=== PATIENT | female | born 1940 | race Caucasian/White ===

== ENCOUNTER 2018-07-09 13:24 | Inpatient (IN) ==
[2018-07-09] MEDS ORDERED: Morphine Inj 4 MG/ML Vial IM ONE (14:31)
--- NOTE | 2018-07-09 15:22 | ED ---
HPI General Chief Complaint: Extremity Injury, Lower Stated Complaint: lt ankle injury x today Time Seen by Provider: 07/09/18 14:24 Source: patient Mode of arrival: ambulatory Limitations: no limitations History of Present Illness HPI Narrative: 78-year-old female here with left ankle pain. She reports while standing in her kitchen today the left leg "gave out" causing her to twist the ankle fall to the ground. She reports the ankle inverted when she fell and she physically "straightened it out". She denies altered sensation or weakness of the ankle or foot. She reports moderate to severe pain localized to the ankle. She denies head injury or loss of consciousness when she fell. She remembers entire event. She is not anticoagulated. She denies any headache, neck pain, chest pain, shortness of breath, abdominal pain, nausea vomiting, paresthesia or weakness of the extremities. She crawled to her cell phone and called her granddaughter for help. Related Data Home Medications Medication Instructions Recorded Confirmed aspirin [Aspir-81] 81 mg PO DAILY 07/09/18 07/09/18 cyanocobalamin (vitamin B-12) 1,000 mcg PO DAILY 07/09/18 07/09/18 [Vitamin B-12] meloxicam 15 mg PO DAILY 07/09/18 07/09/18 sulfasalazine 0.5 g PO DAILY 07/09/18 07/09/18 tramadol 50 mg PO QID 07/09/18 07/09/18 vitamin B complex 1 cap PO DAILY 07/09/18 07/09/18 Allergies Allergy/AdvReac Type Severity Reaction Status Date / Time No Known Allergies Allergy Unknown none Uncoded 07/09/18 13:41 Review of Systems ROS: all other systems reviewed are negative [facility] Medical History Medical History Hx of acute arthritis (Acute) Other plastic surgery for unacceptable cosmetic appearance (Acute) Surgical History Surgical History Hx of breast augmentation (Acute) Hx of rotator cuff surgery (Acute) Family History Family History Other Adopted Social History Social History Substance History: No History of Abuse Second Hand Smoke Exposure: No Smoking Status: Never smoker How Often Do You Have a Drink Containing Alcohol: Never Recent Travel in [facility] within the Last 8 Weeks: No Recent Out of Country Travel within the Last 8 Weeks: No Immunization History Tetanus Immunization: <5 Years Hx Influenza Vaccine This Season: Yes Exam Narrative Exam Narrative: GENERAL: Alert and well-appearing 78-year-old female. SKIN: Focused skin assessment warm/dry. HEAD: Atraumatic. Normocephalic. EYES: Pupils equal and round. EOMI. No injection or drainage. ENT: No nasal bleeding or discharge. Mucous membranes pink and moist. NECK: Trachea midline. No midline spine tenderness. Freely moves the neck. CARDIOVASCULAR: Regular rate and rhythm. No murmur appreciated. RESPIRATORY: No accessory muscle use. Clear to auscultation. Breath sounds equal bilaterally. GASTROINTESTINAL: Abdomen soft, non-tender, nondistended. No rebound or guarding. MUSCULOSKELETAL: No obvious deformities. No clubbing. No cyanosis. Pelvis is stable. No hip tenderness. Normal full range of motion in the upper and right lower extremities. LLE: Notable swelling and ecchymosis to the medial and lateral malleolus. Can freely wiggle the toes. Palpable DP pulse equal to opposing limb. Extremity is warm. Distal sensation intact. Cap refill intact. BACK: No CVA tenderness. No rash. No point tenderness on palpation of the spine. NEUROLOGICAL: Awake and alert. No obvious cranial nerve deficits. Motor grossly within normal limits. Normal speech. PSYCHIATRIC: Appropriate mood and affect; insight and judgment normal. Course Initial Documented Vital Signs Temperature 98.7 F 07/09/18 13:34 Pulse Rate 93 H 07/09/18 13:34 Respiratory Rate 16 07/09/18 13:34 Blood Pressure 156/73 H 07/09/18 13:34 Pulse Oximetry 98 07/09/18 13:34 Last Documented Vital Signs Temperature 98.7 F 07/09/18 13:34 Pulse Rate 80 07/09/18 18:28 Respiratory Rate 18 07/09/18 18:28 Blood Pressure 168/77 H 07/09/18 18:28 Pulse Oximetry 95 07/09/18 18:28 Medical Decision Making [facility] Narrative Medical decision making narrative: 78-year-old female here with ankle pain status post fall from a standing position today. No head injury/loss of consciousness. Normal neurologic exam. By report she reduced the ankle dislocation herself prior to arrival. The extremity is neurovascularly intact, strong pedal pulse. Well-padded James splint applied. X-ray reveals fracture dislocation of the left ankle. Spoke with LYRIC Crane working with on-call orthopedist Dr. James. Discussed patient's case. They would like patient admitted to medicine, transferred to [facility] for surgery tomorrow morning. Patient is to be kept n.p.o. after midnight. Well-padded James splint. spoke with Dr Mondragon [facility] who accepts patient to their service. Medical Screen Exam Complete: Yes Emergency Medical Condition: Yes Differential Diagnosis Differential Diagnosis: Fracture, sprain/strain, contusion Lab Data Result diagrams: 07/09/18 16:30 07/09/18 16:30 Lab Results 07/09/18 07/09/18 07/09/18 Range/Units 16:30 16:30 17:05 CBC w Diff Auto diff final WBC 15.9 H (4.0-11.0) th/mm3 RBC 4.05 (4.00-5.30) mil/mm3 Hgb 12.4 (11.6-15.3) gm/dL Hct 36.5 (35.0-46.0) % MCV 90.2 (80.0-100.0) fL MCH 30.7 (27.0-34.0) pg MCHC 34.1 (32.0-36.0) % RDW 13.3 (11.6-17.2) % Plt Count 247 (150-450) th/mm3 MPV 7.7 (7.0-11.0) fL Neut % (Auto) 86.7 H (16.0-70.0) % Lymph % (Auto) 9.4 (9.0-44.0) % Beltrami % (Auto) 3.4 (0.0-8.0) % Eos % (Auto) 0.2 (0.0-4.0) % Baso % (Auto) 0.3 (0.0-2.0) % Neut # (Auto) 13.9 H (1.8-7.7) th/mm3 Lymph # (Auto) 1.5 (1.0-4.8) th/mm3 Beltrami # (Auto) 0.5 (0.0-0.9) th/mm3 Eos # (Auto) 0.0 (0.0-0.4) th/mm3 Baso # (Auto) 0.0 (0.0-0.2) th/mm3 WBC Differential . Differential Comment . PT 10.5 (9.8-11.6) sec INR 1.0 Ratio APTT 24.9 (24.3-30.1) sec Sodium 140 (136-145) meq/L Potassium 4.5 (3.5-5.1) meq/L Chloride 105 (98-107) meq/L Carbon Dioxide 24.6 (21.0-32.0) meq/L Anion Gap 10 (5-15) meq/L BUN 25 H (7-18) mg/dL Creatinine 1.30 H (0.50-1.00) mg/dL Estimated GFR 40 L (>89) mL/min Random Glucose 103 (74-106) mg/dL Calcium 8.4 L (8.5-10.1) mg/dL Imaging Data Radiologist's impression: Chest X-Ray 07/09/18 00:00 CONCLUSION: No acute cardiopulmonary disease identified. Ankle X-Ray 07/09/18 14:29 CONCLUSION: Acute fracture dislocation involving the ankle as detailed above. Foot X-Ray 07/09/18 14:29 CONCLUSION: See the ankle reported separately. The acute abnormality involving the foot.. Discharge Plan Discharge Disposition Patient Disposition: 30 Still Patient Discharge Details Diagnosis: Closed fracture dislocation of ankle Physicians Team ED Provider: Lorenzo Soto ED Midlevel Provider: Kathryn Abel Primary Care Provider: Colin Espinoza Attending Provider: Froylan Mondragon Other Providers: Mendoza James Status ED Status: Admitted Patient
--- NOTE | 2018-07-09 15:25 | XR ---
EXAM DATE: 07/09/2018 3:21 PM EDT AGE/SEX: 78 years / Female INDICATIONS: Trauma due to fall. CLINICAL DATA: This is the patient's initial encounter. Patient reports that signs and symptoms have been present for 1 day and indicates a pain score of 10/10. MEDICAL/SURGICAL HISTORY: None. None. COMPARISON: HPO, FOOT COMPLETE LEFT 3V, 07/09/2018. . FINDINGS: 6 images left ankle reveal an acute obliquely oriented fracture involving the distal fibular metaphys is. There is 20 degrees angulation with apex laterally. An acute fracture seen involving the medial m alleolus of the distal tibia. There is medial displacement of the tibia relative to the talar dome. T here is a small calcification projecting anterior to the tibiotalar joint on the lateral view without definitive correlate on the frontal view. This could relate to a small avulsion fracture off the ant erior aspects of the tibia. A joint effusion is noted. Spurring of the calcaneus. Degenerative change s involving the midfoot. CONCLUSION: Acute fracture dislocation involving the ankle as detailed above. Electronically signed by: Trent Ward MD 07/09/2018 3:23 PM EDT
--- NOTE | 2018-07-09 15:59 | XR ---
EXAM DATE: 07/09/2018 3:22 PM EDT AGE/SEX: 78 years / Female INDICATIONS: Trauma due to fall. CLINICAL DATA: This is the patient's initial encounter. Patient reports that signs and symptoms have been present for 1 day and indicates a pain score of 10/10. MEDICAL/SURGICAL HISTORY: None. None. COMPARISON: HPO, ANKLE COMPLETE LEFT MIN 3V, 07/09/2018. . FINDINGS: See the ankle report separately. The foot is intact. No fracture or dislocation. Soft tissues are unremarkable. Midfoot degenerative c hanges noted. CONCLUSION: See the ankle reported separately. The acute abnormality involving the foot.. Electronically signed by: Trent Ward MD 07/09/2018 3:58 PM EDT
[2018-07-09] MEDS ORDERED: Morphine Inj 4 MG/ML Vial IV.PUSH ONE (16:23)
[2018-07-09 16:51] LABS: Baso % (Auto) 0.3 % (0.0-2.0); Eos % (Auto) 0.2 % (0.0-4.0); Hematocrit 36.5 % (35.0-46.0); Hemoglobin 12.4 gm/dL (11.6-15.3); Lymph # (Auto) 1.5 th/mm3 (1.0-4.8); Lymph % (Auto) 9.4 % (9.0-44.0); Mean Corpuscular HGB Conc 34.1 % (32.0-36.0); Mean Corpuscular Hemoglobin 30.7 pg (27.0-34.0); Mean Corpuscular Volume 90.2 fL (80.0-100.0); Mean Platelet Volume 7.7 fL (7.0-11.0); Mono # (Auto) 0.5 th/mm3 (0.0-0.9); Mono % (Auto) 3.4 % (0.0-8.0); Neut # (Auto) 13.9 th/mm3 (1.8-7.7); Neut % (Auto) 86.7 % (16.0-70.0); Platelet Count 247 th/mm3 (150-450); Red Blood Count 4.05 mil/mm3 (4.00-5.30); Red Cell Distribution Width 13.3 % (11.6-17.2); White Blood Count 15.9 th/mm3 (4.0-11.0)
[2018-07-09 16:59] LABS: Potassium 4.5 meq/L (3.5-5.1)
[2018-07-09 17:01] LABS: Calcium 8.4 mg/dL (8.5-10.1); Carbon Dioxide 24.6 meq/L (21.0-32.0)
[2018-07-09] MEDS ORDERED: Acetaminophen 325 MG Tablet PO PRN (17:12)
[2018-07-09] MEDS ORDERED: Morphine Inj 4 MG/ML Vial IV.PUSH PRN (17:30)
--- NOTE | 2018-07-09 17:31 | P.PNIM ---
Physical Exam Vital signs: Vital Signs 07/09/18 13:34 07/09/18 16:45 07/09/18 17:22 Temperature 98.7 F Pulse Rate 93 H 80 Respiratory Rate 16 18 18 Blood Pressure 156/73 H 146/79 H Pulse Oximetry 98 97 Intake & Output 07/08/18 07/09/18 07/09/18 18:59 06:59 18:59 Weight 82 kg Results - Labs CBC & Chem 7: 07/09/18 16:30 07/09/18 16:30 Laboratory Results - last 24 hr 07/09/18 07/09/18 16:30 16:30 CBC w Diff Auto diff final WBC 15.9 H RBC 4.05 Hgb 12.4 Hct 36.5 MCV 90.2 MCH 30.7 MCHC 34.1 RDW 13.3 Plt Count 247 MPV 7.7 Neut % (Auto) 86.7 H Lymph % (Auto) 9.4 Rogers % (Auto) 3.4 Eos % (Auto) 0.2 Baso % (Auto) 0.3 Neut # (Auto) 13.9 H Lymph # (Auto) 1.5 Rogers # (Auto) 0.5 Eos # (Auto) 0.0 Baso # (Auto) 0.0 WBC Differential . Differential Comment . Sodium 140 Potassium 4.5 Chloride 105 Carbon Dioxide 24.6 Anion Gap 10 BUN 25 H Creatinine 1.30 H Estimated GFR 40 L Random Glucose 103 Calcium 8.4 L - Imaging Impressions Ankle X-Ray 07/09/18 14:29 CONCLUSION: Acute fracture dislocation involving the ankle as detailed above. Foot X-Ray 07/09/18 14:29 CONCLUSION: See the ankle reported separately. The acute abnormality involving the foot..
--- NOTE | 2018-07-09 17:34 | P.HPIM ---
History of Present Illness Service: [facility] Primary Care Physician: Colin Espinoza MD Chief Complaint: distal leg fracture History of Present Illness: Mrs. Quiroz is a 78 yo F with H osteoarthritis, rheumatoid arthritis, and distant prior TIA who presented to [facility] PO after fall injury this morning resulting in L ankle/leg injury. Patient states that she was preparing meals for her dogs this morning when she felt that her left leg was "going out." She could not keep her balance so she fell which resulted in her ankle being displaced inward towards her right leg. Patient states that she fell slowly and did not hit her head or have other injury. She denies any loss of consciousness, dizziness, or other symptoms preceding fall. Patient reports prior weakness/ "wobbl'ing of her leg due to history of arthritis and that she has seen a physician previously for this; she did not have acute numbness/tingling/weakness or other changes to cause suspicion for cardiac or vascular accident. After injury, patient could not ambulate so crawled to phone to contact granddaughter. Patient was then given splint by fire department who arrived to house, and was subsequently transported to ED. Patient reports having recent weakness so was planning to have a cardiac work- up per her PCP. She has not had chest pain or palpitations. She takes Tramadol and Sulfasalazine for arthritis; she denies other medical problems. Interval: patient evaluated in ED; ankle imaging demonstrating complicated distal fibula/ tibia fracture. Patient given Morphine for pain. Per discussion between ED and Dr. James's team, it was agreed for patient to be transferred to [facility] with plan for ORIF tomorrow; hospitalist called for admission. - Diagnosis (1) Closed fracture dislocation of ankle (2) Osteoarthritis (3) Rheumatoid arthritis Inpatient Certification: I certify that the inpatient services were ordered in accordance with Medicare regulations governing the order. This includes certification that hospital inpatient services are reasonable and necessary and in the case of services not specified as inpatient-only under 42 CFR 419.22(n), that they are appropriately provided as inpatient services in accordance to with the 2-midnight benchmark under 43 CFR 412.3(e) Estimated Total Length of Stay (Days): 3 Plans for Post Hospital Care: Home Review of Systems Constitutional: Reports weakness, Denies chills, Denies fever(s) Eyes: Denies blurry vision, Denies change in vision Ears, Nose, Mouth, and Throat: Denies sinus pain, Denies sinus pressure Cardiovascular: Denies chest pain, Denies shortness of breath Respiratory: Denies cough, Denies shortness of breath Gastrointestinal: Denies abdominal pain, Denies vomiting Genitourinary: Denies urinary incontinence, Denies urinary urgency Musculoskeletal: Reports back pain, Reports joint pain Neurologic: Denies tingling, Denies tingling/numbness/burning sensations Psychiatric: Denies confusion, Denies depression Hematologic/Lymphatic: Denies easy bleeding, Denies easy bruising PMFSH - History History Provided By: Patient - Medical History Medical History: Medical History (Last Reviewed 07/09/18 @ 15:18 by Kathryn Abel) Hx of acute arthritis Other plastic surgery for unacceptable cosmetic appearance - Surgical History Surgical History: Surgical History (Last Reviewed 07/09/18 @ 15:18 by Kathryn Abel) Hx of breast augmentation Hx of rotator cuff surgery - Family History Family History: Family History (Last Updated 07/09/18 @ 17:59 by Froylan Mondragon MD) Other Adopted - Tobacco History Second Hand Smoke Exposure: No Smoking Status: Never smoker - Alcohol History How Often Do You Have a Drink Containing Alcohol: Never - Substance Use History Substance History: No History of Abuse - Travel History Recent Travel in the [place] Within the Last 8 Weeks: No Recent Travel Out of the Country Within the Last 8 Weeks: No - Immunization History Tetanus Immunization: <5 Years Hx Influenza Vaccine This Season: Yes Medications and Allergies Active Medications: Active Medications Acetaminophen (Tylenol) 650 mg PO Q4H PRN PRN Reason: Temp > 100.4 Hydrocodone Bitart/Acetaminophen ([place] 5/325) 1 tab PO Q6H PRN PRN Reason: Pain Scale 1 To 6 Aspirin (Ecotrin) 81 mg PO DAILY [facility] Cyanocobalamin (Vitamin B12) 1,000 mcg PO DAILY [facility] Enalaprilat (Vasotec Inj) 1.25 mg IV.PUSH Q8H PRN PRN Reason: SBP>180, DBP>95 Sodium Chloride (Ns Inj) 1,000 mls @ 100 mls/hr IV.CONT .Q10H [facility] Meloxicam (Mobic) 15 mg PO DAILY [facility] Morphine Sulfate (Morphine Inj) 4 mg IV.PUSH Q4H PRN PRN Reason: PAIN SCALE 7 TO 10 SEVERE Morphine Sulfate (Morphine Inj) 2 mg IV.PUSH Q4H PRN PRN Reason: BREAKTHROUGH PAIN Non-Formulary Medication (Vitamin B Complex [Vitamin B Complex]) 1 cap PO DAILY [facility] Ondansetron HCl (Zofran Inj) 4 mg IV.PUSH Q6H PRN PRN Reason: NAUSEA OR VOMITING Senna/Docusate Sodium (Cyndy-Colace) 1 tab PO BID [facility] Sodium Chloride (Ns Flush) 2 ml IV.FLUSH PRN PRN PRN Reason: FLUSH AFTER USING IV ACCESS Sulfasalazine (Azulfidine) 500 mg PO DAILY [facility] Tramadol HCl (Ultram) 50 mg PO QID PRN PRN Reason: Chronic Pain Allergies Allergy/AdvReac Type Severity Reaction Status Date / Time No Known Allergies Allergy Unknown none Uncoded 07/09/18 13:41 Home Medications Medication Instructions Recorded Confirmed Type aspirin [Aspir-81] 81 mg PO DAILY 07/09/18 07/09/18 History cyanocobalamin (vitamin B-12) 1,000 mcg PO DAILY 07/09/18 07/09/18 History [Vitamin B-12] meloxicam 15 mg PO DAILY 07/09/18 07/09/18 History sulfasalazine 0.5 g PO DAILY 07/09/18 07/09/18 History tramadol 50 mg PO QID 07/09/18 07/09/18 History vitamin B complex 1 cap PO DAILY 07/09/18 07/09/18 History Exam Vital signs: Vital Signs 07/09/18 13:34 07/09/18 16:45 07/09/18 17:22 Temperature 98.7 F Pulse Rate 93 H 80 Respiratory Rate 16 18 18 Blood Pressure 156/73 H 146/79 H Pulse Oximetry 98 97 Intake & Output 07/08/18 07/09/18 07/09/18 18:59 06:59 18:59 Weight 82 kg Narrative: General: No acute distress Eyes: EOM grossly I HENT: Normal mucus membranes Skin: No visible lesions Neck: No appreciated thyromegaly or lymphadenopathy CV: Regular rate and rhythm; normal perfusion Resp: CTAB; normal rate Abdomen/Back: Normal BS. Ext: Grossly normal ROM and motor function. LLE in splint. Neuro: Awake/alert. Grossly normal CN. Grossly normal peripheral motor/sensory function. Patient with RLE intact sensation distally in toes; full motor function with manipulation of toes Results - Labs CBC & Chem 7: 07/09/18 16:30 07/09/18 16:30 Labs: Short CBC 07/09/18 Range/Units 16:30 WBC 15.9 H (4.0-11.0) th/mm3 Hgb 12.4 (11.6-15.3) gm/dL Hct 36.5 (35.0-46.0) % Plt Count 247 (150-450) th/mm3 BMP 07/09/18 16:30 Sodium 140 Potassium 4.5 Chloride 105 Carbon Dioxide 24.6 BUN 25 H Creatinine 1.30 H Calcium 8.4 L - Imaging Impressions Ankle X-Ray 07/09/18 14:29 CONCLUSION: Acute fracture dislocation involving the ankle as detailed above. Foot X-Ray 07/09/18 14:29 CONCLUSION: See the ankle reported separately. The acute abnormality involving the foot.. Caprini VTE Risk Assessment Caprini VTE Risk Assessment: Moderate/High Risk (score >= 2) Caprini Risk Assessment Model: Point Value = 1 Point Value = 2 Point Value = 3 Point Value = 5 Age 41-60 Minor surgery BMI > 25 kg/m2 Swollen legs Varicose veins or History of unexplained or recurrent spontaneous Oral contraceptives or hormone replacement Sepsis (< 1 month) Serious lung disease, including pneumonia (< 1 month) Abnormal pulmonary function Acute myocardial infarction Congestive heart failure (< 1 month) History of inflammatory bowel disease Medical patient at bed rest Age 61-74 Arthroscopic surgery Major open surgery (> 45 min) Laparoscopic surgery (> 45 min) Malignancy Confined to bed (> 72 hours) Immobilizing plaster cast Central venous access Age >= 75 History of VTE Family history of VTE Factor V Leiden Prothrombin [id number] Lupus anticoagulant Anticardiolipin antibodies Elevated serum homocysteine Heparin-induced thrombocytopenia Other congenital or acquired thrombophilia Stroke (< 1 month) Elective arthroplasty Hip, pelvis, or leg fracture Acute spinal cord injury (< 1 month) Prophylaxis Regimen: Total Risk Factor Score Risk Level Prophylaxis Regimen 0-1 Low Early ambulation 2 Moderate Order ONE of the following: *Sequential Compression Device (SCD) *Heparin 5000 units SQ BID 3-4 Higher Order ONE of the following medications: *Heparin 5000 units SQ TID *Enoxaparin/Lovenox 40 mg SQ daily (WT < 150 kg, CrCl > 30 mL/min) *Enoxaparin/Lovenox 30 mg SQ daily (WT < 150 kg, CrCl > 10-29 mL/min) *Enoxaparin/Lovenox 30 mg SQ BID (WT < 150 kg, CrCl > 30 mL/min) AND/OR *Sequential Compression Device (SCD) 5 or more Highest Order ONE of the following medications: *Heparin 5000 units SQ TID (Preferred with Epidurals) *Enoxaparin/Lovenox 40 mg SQ daily (WT < 150 kg, CrCl > 30 mL/min) *Enoxaparin/Lovenox 30 mg SQ daily (WT < 150 kg, CrCl > 10-29 mL/min) *Enoxaparin/Lovenox 30 mg SQ BID (WT < 150 kg, CrCl > 30 mL/min) AND *Sequential Compression Device (SCD) Assessment and Plan - Assessment (1) Closed fracture dislocation of ankle Code(s): S82.899A - Other fracture of unspecified lower leg, initial encounter for closed fracture Status: Acute (2) Osteoarthritis Code(s): M19.90 - Unspecified osteoarthritis, unspecified site Status: Acute (3) Rheumatoid arthritis Code(s): M06.9 - Rheumatoid arthritis, unspecified Status: Acute - Plan Mrs. Quiroz is a 78 yo F with: Distal leg/ankle fracture Impression: secondary to fall injury earlier today; reportedly closed Ankle XR- acute fracture involving ankle: distal fibular metaphysis; 20 degrees angulation with lateral apex. Acute medial malleolar fracture of distal tibia. Medial displacement of tibia. Small calcification progjecting anterior to tibiotalar joint on lateral view without definite correlate on frontal view; possible small avulsion of anterior tibia. Joint effusion noted. Degenerative changes of midfoot noted -Orthopedic surgery consulted -Will make NPO after midnight -Pain control -Will give Morphine 4mg IV for pain 7-10; Morphine 2mg for breakthrough pain -Will check Vit D -CM and PT consults Weakness Impression: Per patient, she has had recent weakness without other associated symptoms. She states that her PCP referred her to Cardiology but denies knowledge of arrhythmia -Will check pre-op EKG Leukocytosis Impression: No symptoms suggestive of source of infection; likely reactive / from demargination from injury -Will check pre-op CXR and UA Rheumatoid arthritis -Continue home Tramadol, Sulfasalazine, Meloxicam DVT PPX -SCD's bilaterally pre-op Code Status: Full code (1) Closed fracture dislocation of ankle Qualifiers: Encounter type: initial encounter Laterality: left Qualified Code(s): S82.892A - Other fracture of left lower leg, initial encounter for closed fracture
[2018-07-09 17:42] LABS: Activated Partial Thrombo Time 24.9 sec (24.3-30.1); Prothrombin Time 10.5 sec (9.8-11.6)
--- NOTE | 2018-07-09 18:04 | XR ---
EXAM DATE: 07/09/2018 5:57 PM EDT AGE/SEX: 78 years / Female INDICATIONS: Pre-op. Please evaluate for pneumonia, pneumothorax, or any other communicable diseases . CLINICAL DATA: This is the patient's initial encounter. Patient reports that signs and symptoms have been present for 1 day and indicates a pain score of 0/10. MEDICAL/SURGICAL HISTORY: None. None. COMPARISON: POI, XR CHEST PA AND LAT, 07/06/2018. . FINDINGS: Single AP view of the chest. The lungs are clear. Cardiomediastinal silhouette within nor mal limits. No evidence of pleural effusion or pneumothorax. CONCLUSION: No acute cardiopulmonary disease identified. Electronically signed by: Anirudh Salguero MD 07/09/2018 6:03 PM EDT
[2018-07-09] MEDS: sulfaSALAzine 500 MG Tablet PO SCH (18:55)
--- NOTE | 2018-07-09 21:55 | ECG ---
Date Performed: 07/09/2018 Time Performed: 17:36:50 PTAGE: 78 years EKG: Sinus rhythm NONSPECIFIC ST & T-WAVE ABNORMALITY BORDERLINE ECG PREVIOUS TRACING : 08/02/2013 00.47 DOCTOR: Win Velazquez Interpretating Date/Time 07/09/2018 21:53:24
[2018-07-10] MEDS: Sod Chloride 0.9% Inj 1,000 ML IV.CONT SCH ×4 (00:21→18:55)
[2018-07-10] MEDS: Morphine Inj 4 MG/ML Vial IV.PUSH PRN (00:21)
[2018-07-10] MEDS ORDERED: Chlorhexidine Gluconate 2% 1 Pack (2 Cloths) TOPICAL ONE (01:09)
[2018-07-10] MEDS ORDERED: Sodium Chlor 0.9% Inj 500 ML IV.SIG SCH (02:00)
[2018-07-10 05:30] LABS: Baso # (Auto) 0.1 th/mm3 (0.0-0.2); Baso % (Auto) 0.6 % (0.0-2.0); Eos # (Auto) 0.1 th/mm3 (0.0-0.4); Eos % (Auto) 0.6 % (0.0-4.0); Hemoglobin 10.9 gm/dL (11.6-15.3); Lymph # (Auto) 2.2 th/mm3 (1.0-4.8); Lymph % (Auto) 22.2 % (9.0-44.0); Mean Corpuscular HGB Conc 32.9 % (32.0-36.0); Mean Corpuscular Hemoglobin 30.1 pg (27.0-34.0); Mean Corpuscular Volume 91.3 fL (80.0-100.0); Mean Platelet Volume 7.8 fL (7.0-11.0); Mono # (Auto) 0.7 th/mm3 (0.0-0.9); Neut # (Auto) 6.9 th/mm3 (1.8-7.7); Neut % (Auto) 69.6 % (16.0-70.0); Platelet Count 228 th/mm3 (150-450); Red Blood Count 3.61 mil/mm3 (4.00-5.30); Red Cell Distribution Width 14.3 % (11.6-17.2); White Blood Count 9.9 th/mm3 (4.0-11.0)
[2018-07-10 05:53] LABS: Anion Gap 8 meq/L (5-15); Aspartate Aminotransferase 21 U/L (15-37); Blood Urea Nitrogen 26 mg/dL (7-18); Calcium 8.1 mg/dL (8.5-10.1); Carbon Dioxide 26.1 meq/L (21.0-32.0); Chloride 107 meq/L (98-107); Glomerular Filtration Rate 38 mL/min (>89); Glucose,Random 134 mg/dL (74-106); Potassium 3.9 meq/L (3.5-5.1); Sodium 141 meq/L (136-145)
[2018-07-10 05:55] LABS: Alanine Aminotransferase 22 U/L (10-53)
[2018-07-10 06:04] LABS: Alkaline Phosphatase 80 U/L (45-117); Total Protein 6.8 g/dL (6.4-8.2)
--- NOTE | 2018-07-10 06:59 | P.PNOP ---
Subjective Interval history: s/p fall at home left ankle pain. no other complaints. Physical Exam Vital signs: Vital Signs 07/09/18 13:34 07/09/18 16:45 07/09/18 17:22 Temperature 98.7 F Pulse Rate 93 H 80 Respiratory Rate 16 18 18 Blood Pressure 156/73 H 146/79 H Pulse Oximetry 98 97 07/09/18 18:28 07/09/18 18:59 07/09/18 19:43 Temperature Pulse Rate 80 72 74 Respiratory Rate 18 20 18 Blood Pressure 168/77 H 157/63 H 157/62 H Pulse Oximetry 95 94 L 94 L 07/09/18 20:27 07/09/18 20:35 07/09/18 21:28 Temperature 97.8 F Pulse Rate 70 72 Respiratory Rate 18 18 Blood Pressure 166/72 H 147/62 H Pulse Oximetry 90 L 98 98 07/09/18 22:00 07/10/18 00:00 07/10/18 04:00 Temperature 98.4 F 97.3 F L 98.1 F Pulse Rate 83 96 H 77 Respiratory Rate 20 19 16 Blood Pressure 162/60 H 184/68 H 144/58 H Pulse Oximetry 95 97 98 Intake & Output 07/09/18 07/09/18 07/10/18 06:59 18:59 06:59 Intake Total 480 / 480 Output Total 100 / 100 Balance 480 / 480 -100 / -100 Weight 82 kg 83.2 kg Intake: Oral 480 / 480 Output: Emesis 100 / 100 Other: Date of Last Bowel Movement 07/08/18 # Emeses 2 # Oral Regurgitations 2 Weight On Admission 82 kg Narrative: LLE: +short leg splint. intact. NVI Results - Labs CBC & Chem 7: 07/10/18 04:50 07/10/18 04:50 Laboratory Results - last 24 hr 07/09/18 07/09/18 07/09/18 16:30 16:30 17:05 CBC w Diff Auto diff final WBC 15.9 H RBC 4.05 Hgb 12.4 Hct 36.5 MCV 90.2 MCH 30.7 MCHC 34.1 RDW 13.3 Plt Count 247 MPV 7.7 Neut % (Auto) 86.7 H Lymph % (Auto) 9.4 Porter % (Auto) 3.4 Eos % (Auto) 0.2 Baso % (Auto) 0.3 Neut # (Auto) 13.9 H Lymph # (Auto) 1.5 Porter # (Auto) 0.5 Eos # (Auto) 0.0 Baso # (Auto) 0.0 WBC Differential . Differential Comment . PT 10.5 INR 1.0 APTT 24.9 Sodium 140 Potassium 4.5 Chloride 105 Carbon Dioxide 24.6 Anion Gap 10 BUN 25 H Creatinine 1.30 H Estimated GFR 40 L Random Glucose 103 Calcium 8.4 L Total Bilirubin AST ALT Alkaline Phosphatase Total Protein Albumin TSH Blood Type Blood Type Recheck Antibody Screen 07/10/18 07/10/18 07/10/18 04:50 04:50 04:50 CBC w Diff WBC 9.9 RBC 3.61 L Hgb 10.9 L Hct 33.0 L MCV 91.3 MCH 30.1 MCHC 32.9 RDW 14.3 Plt Count 228 MPV 7.8 Neut % (Auto) 69.6 Lymph % (Auto) 22.2 Porter % (Auto) 7.0 Eos % (Auto) 0.6 Baso % (Auto) 0.6 Neut # (Auto) 6.9 Lymph # (Auto) 2.2 Porter # (Auto) 0.7 Eos # (Auto) 0.1 Baso # (Auto) 0.1 WBC Differential . Differential Comment Auto diff final PT INR APTT Sodium 141 Potassium 3.9 Chloride 107 Carbon Dioxide 26.1 Anion Gap 8 BUN 26 H Creatinine 1.33 H Estimated GFR 38 L Random Glucose 134 H Calcium 8.1 L Total Bilirubin 0.3 AST 21 ALT 22 Alkaline Phosphatase 80 Total Protein 6.8 Albumin 3.0 L TSH 3.840 H Blood Type A Positive Blood Type Recheck Required Antibody Screen Negative - Imaging Impressions Chest X-Ray 07/09/18 00:00 CONCLUSION: No acute cardiopulmonary disease identified. Ankle X-Ray 07/09/18 14:29 CONCLUSION: Acute fracture dislocation involving the ankle as detailed above. Foot X-Ray 07/09/18 14:29 CONCLUSION: See the ankle reported separately. The acute abnormality involving the foot.. Assessment and Plan - Assessment and Plan 1) Left Bimalleolar Ankle Fx -npo -consents -surgery today [facility] Prescription Drug Monitoring Database has been queried and verified prior to prescribing the controlled substance. Acute pain exception. This patient has normal, predicted, physiological, and time limited response to an adverse mechanical stimulus associated with surgery, trauma, or acute illness as described in my notes. There is a lack of alternative treatment options other than to include the prescribed narcotic treatment for this condition.
[2018-07-10] MEDS ORDERED: Lidocaine PF 1% Inj 5 ML Syringe INFILTRATN ONE (07:30)
[2018-07-10] MEDS ORDERED: Post-op Orders (for Pharmacy) OTHER STA (08:17)
--- NOTE | 2018-07-10 08:21 | P.OP ---
- Preoperative Diagnosis (1) Closed fracture dislocation of ankle Date of procedure: 07/10/18 Procedure: Open reduction internal fixation left ankle bimalleolar fracture, stress exam syndesmosis under fluoroscopy Anesthesia: MITCHEL Surgeon: Mendoza Chu MD Stop Attacher: MANUELA Crane PA-C The surgical procedure was assisted by my physician information technology assistant. My P.A. presence was necessary throughout this case for the manipulation and positioning of the surgical extremity. My P.A. was assisting me throughout the duration of this procedure. The skill set of a physician information technology assistant was medically necessary to complete this procedure. During the surgical case the surgical services tech was working at the back table and the physician information technology assistant was directly assisting me. Operation and Findings: Implants used : ITS Plan of activity: Nonweightbearing Details of procedure: Patient was seen and evaluated preoperatively and found to have a displaced left ankle fracture. Informed consent was obtained after a detailed discussion of risk and benefits of surgery. The operative site was marked. Patient was brought to the OR, placed on the OR table, and given IV sedation and general endotracheal anesthesia. IV antibiotics were given preoperatively. A timeout procedure was performed. The operative leg was prepped with alcohol followed by Hibiclens and draped in the usual sterile fashion. Attention was turned towards the distal fibula. A four-inch incision was made over the distal fibula. The subcutaneous tissue was dissected with Bovie. The fracture site was visualized. The fracture site was cleaned with curets. The fracture was now reduced. The fracture keyed into anatomic alignment. K-wires were used to h old provisional fixation. A lag screw was placed to compress fracture. A plate was selected and contoured to fit the distal fibula. The plate was provisionally held to bone with K-wires. 3.5 cortical screws were used to compress the plate to bone. Multiple screws were placed above and below the fracture. Next attention was turned towards the medial malleolus. Fracture was visualized under fluoroscopy. Fracture was now reduced percutaneously and keyed into anatomic alignment. 2 guidepins for the 4.0 cannulated screws were placed in a retrograde fashion across the fracture. Fluoroscopy was used to confirm guidepin placement. Cannulated drill was placed over the guidepin. 2 appropriate length screws were now placed. Good compression was applied. Fluoroscopy confirmed well aligned fracture with well-placed hardware. Next, attention was turned to the syndesmosis. The syndesmosis was stressed. There was no widening of the syndesmosis with external rotation of the ankle. Incisions were thoroughly irrigated. The subcutaneous tissue was closed with 3- 0 Vicryl and the skin was closed with 3-0 nylon. Sterile dressings were applied. A well molded well-padded splint was applied. The patient was transferred to Recovery in stable condition. Needle and sponge counts were correct.
--- NOTE | 2018-07-10 08:48 | XR ---
EXAM DATE: 07/10/2018 8:38 AM EDT AGE/SEX: 78 years / Female INDICATIONS: Left ankle ORIF. CLINICAL DATA: This is the patient's initial encounter. Patient reports that signs and symptoms have been present for 2 days and indicates a pain score of Nonresponsive. MEDICAL/SURGICAL HISTORY: None. None. COMPARISON: No prior exams available for comparison. FINDINGS: 3 spot intraoperative fluoroscopic views of the left ankle demonstrate lateral plate and screw fixati on of the distal fibula and 2 screws traversing the medial malleolus. CONCLUSION: ORIF left ankle. Electronically signed by: Jevon Perez MD 07/10/2018 8:47 AM EDT
[2018-07-10] MEDS ORDERED: fentaNYL Citrate Inj 100 MCG/2 ML Ampul ONE (08:49)
[2018-07-10] MEDS: Meloxicam 15 MG Tablet PO SCH (09:00)
[2018-07-10] MEDS: sulfaSALAzine 500 MG Tablet PO SCH (09:00)
[2018-07-10] MEDS: Calcium/Vitamin D 250/125 MG Tablet PO SCH ×3 (09:00→18:22)
[2018-07-10] MEDS: Vitamin B Complex/Vitamin C Tablet PO SCH (09:00)
[2018-07-10] MEDS: Senna/Docusate Sodium 8.6/50 MG Tablet PO SCH ×3 (09:01→23:01)
--- NOTE | 2018-07-10 11:36 | P.PN ---
Subjective Interval history: If surgery, and has no current complaints. Patient had been n.p.o. since midnight. No concerns. Physical Exam Vital signs: Vital Signs 07/09/18 13:34 07/09/18 16:45 07/09/18 17:22 Temperature 98.7 F Pulse Rate 93 H 80 Respiratory Rate 16 18 18 Blood Pressure 156/73 H 146/79 H Pulse Oximetry 98 97 07/09/18 18:28 07/09/18 18:59 07/09/18 19:43 Temperature Pulse Rate 80 72 74 Respiratory Rate 18 20 18 Blood Pressure 168/77 H 157/63 H 157/62 H Pulse Oximetry 95 94 L 94 L 07/09/18 20:27 07/09/18 20:35 07/09/18 21:28 Temperature 97.8 F Pulse Rate 70 72 Respiratory Rate 18 18 Blood Pressure 166/72 H 147/62 H Pulse Oximetry 90 L 98 98 07/09/18 22:00 07/10/18 00:00 07/10/18 04:00 Temperature 98.4 F 97.3 F L 98.1 F Pulse Rate 83 96 H 77 Respiratory Rate 20 19 16 Blood Pressure 162/60 H 184/68 H 144/58 H Pulse Oximetry 95 97 98 07/10/18 08:43 07/10/18 09:00 07/10/18 09:15 Temperature 98.5 F Pulse Rate 88 84 78 Respiratory Rate 15 15 16 Blood Pressure 155/66 H 162/66 H 153/69 H Pulse Oximetry 93 L 99 99 07/10/18 09:20 07/10/18 10:00 Temperature 98.3 F 98.5 F Pulse Rate 78 72 Respiratory Rate 15 18 Blood Pressure 147/65 H 169/74 H Pulse Oximetry 99 96 Intake & Output 07/09/18 07/10/18 07/10/18 18:59 06:59 18:59 Intake Total 480 / 480 300 / 300 Output Total 100 / 100 50 / 50 Balance 480 / 480 -100 / -100 250 / 250 Weight 82 kg 83.2 kg Intake: Oral 480 / 480 Anesthesia Amount 300 / 300 Output: Urine 0 / 0 Emesis 100 / 100 Estimated Blood Loss 50 / 50 Other: Date of Last Bowel Movement 07/08/18 07/08/18 # Emeses 2 # Oral Regurgitations 2 Weight On Admission 82 kg Narrative: GENERAL: well nourished female, lying comfortably in bed, in NAD. SKIN: Warm and dry. HEAD: Normocephalic. EYES: No scleral icterus. No injection or drainage. NECK: Supple, trachea midline. No JVD or lymphadenopathy. CARDIOVASCULAR: Regular rate and rhythm without murmurs, gallops, or rubs. RESPIRATORY: Breath sounds equal bilaterally. No accessory muscle use. GASTROINTESTINAL: Abdomen soft, non-tender, nondistended. MUSCULOSKELETAL: No cyanosis, or edema. Left LE brace in place. BACK: Nontender without obvious deformity. No CVA tenderness. Results - Labs CBC & Chem 7: 07/10/18 04:50 07/10/18 04:50 Laboratory Results - last 24 hr 07/09/18 07/09/18 07/09/18 16:30 16:30 17:05 CBC w Diff Auto diff final WBC 15.9 H RBC 4.05 Hgb 12.4 Hct 36.5 MCV 90.2 MCH 30.7 MCHC 34.1 RDW 13.3 Plt Count 247 MPV 7.7 Neut % (Auto) 86.7 H Lymph % (Auto) 9.4 Dixie % (Auto) 3.4 Eos % (Auto) 0.2 Baso % (Auto) 0.3 Neut # (Auto) 13.9 H Lymph # (Auto) 1.5 Dixie # (Auto) 0.5 Eos # (Auto) 0.0 Baso # (Auto) 0.0 WBC Differential . Differential Comment . PT 10.5 INR 1.0 APTT 24.9 Sodium 140 Potassium 4.5 Chloride 105 Carbon Dioxide 24.6 Anion Gap 10 BUN 25 H Creatinine 1.30 H Estimated GFR 40 L Random Glucose 103 Calcium 8.4 L Total Bilirubin AST ALT Alkaline Phosphatase Total Protein Albumin TSH Blood Type Blood Type Recheck Antibody Screen 07/10/18 07/10/18 07/10/18 04:50 04:50 04:50 CBC w Diff WBC 9.9 RBC 3.61 L Hgb 10.9 L Hct 33.0 L MCV 91.3 MCH 30.1 MCHC 32.9 RDW 14.3 Plt Count 228 MPV 7.8 Neut % (Auto) 69.6 Lymph % (Auto) 22.2 Dixie % (Auto) 7.0 Eos % (Auto) 0.6 Baso % (Auto) 0.6 Neut # (Auto) 6.9 Lymph # (Auto) 2.2 Dixie # (Auto) 0.7 Eos # (Auto) 0.1 Baso # (Auto) 0.1 WBC Differential . Differential Comment Auto diff final PT INR APTT Sodium 141 Potassium 3.9 Chloride 107 Carbon Dioxide 26.1 Anion Gap 8 BUN 26 H Creatinine 1.33 H Estimated GFR 38 L Random Glucose 134 H Calcium 8.1 L Total Bilirubin 0.3 AST 21 ALT 22 Alkaline Phosphatase 80 Total Protein 6.8 Albumin 3.0 L TSH 3.840 H Blood Type A Positive Blood Type Recheck Required Antibody Screen Negative - Imaging Impressions Chest X-Ray 07/09/18 00:00 CONCLUSION: No acute cardiopulmonary disease identified. Ankle X-Ray 07/09/18 14:29 CONCLUSION: Acute fracture dislocation involving the ankle as detailed above. Foot X-Ray 07/09/18 14:29 CONCLUSION: See the ankle reported separately. The acute abnormality involving the foot.. Ankle X-Ray 07/10/18 00:00 CONCLUSION: ORIF left ankle. Assessment and Plan - Assessment (1) Closed fracture dislocation of ankle Code(s): S82.899A - Other fracture of unspecified lower leg, initial encounter for closed fracture Status: Acute (2) Osteoarthritis Code(s): M19.90 - Unspecified osteoarthritis, unspecified site Status: Chronic (3) Rheumatoid arthritis Code(s): M06.9 - Rheumatoid arthritis, unspecified Status: Chronic - Plan 78 y/o CF admitted for IP mgmt of L Ankle Fracture s/p ORIF, POD#0 1. POST OP CARE Managed by Ortho, cont. pain control, ASA for DXT PPX Dispo pending Ortho and PT reccs 2. ISABEL likely due to home meds Creatinine 1.33 from 1.30 (in 2013 was WNL per EMR) cont. IVF's postop Avoid nephrotoxic meds- holding Sulfazaline and Melxicam until improves 3. ANEMIA: Hgb 10.9 from 12.4, likely hemoconcentrated, baseline 11 in 2013. 4. ABN TSH: 3.840, not on meds, F/U T3 and T4. 5. DVT PPX: ASA 81mg QD Code Status: full Discussed Condition With: patient and nurse (1) Closed fracture dislocation of ankle Qualifiers: Encounter type: initial encounter Laterality: left Qualified Code(s): S82.892A - Other fracture of left lower leg, initial encounter for closed fracture
[2018-07-10] MEDS: ceFAZolin Inj 2,000 MG in Sodium Chlor 0.9% Inj 80 ML IV.SIG SCH (16:20)
[2018-07-11] MEDS: ceFAZolin Inj 2,000 MG in Sodium Chlor 0.9% Inj 80 ML IV.SIG SCH ×2 (00:16→10:04)
[2018-07-11] MEDS: Sod Chloride 0.9% Inj 1,000 ML IV.CONT SCH ×2 (04:55→15:01)
[2018-07-11 09:52] LABS: Hematocrit 31.8 % (35.0-46.0); Hemoglobin 10.6 gm/dL (11.6-15.3); Mean Corpuscular HGB Conc 33.4 % (32.0-36.0); Mean Corpuscular Hemoglobin 30.2 pg (27.0-34.0); Mean Corpuscular Volume 90.3 fL (80.0-100.0); Mean Platelet Volume 8.7 fL (7.0-11.0); Platelet Count 213 th/mm3 (150-450); Red Blood Count 3.52 mil/mm3 (4.00-5.30); Red Cell Distribution Width 14.1 % (11.6-17.2); White Blood Count 11.7 th/mm3 (4.0-11.0)
[2018-07-11] MEDS: Senna/Docusate Sodium 8.6/50 MG Tablet PO SCH ×3 (10:05→10:37)
[2018-07-11] MEDS: Vitamin B Complex/Vitamin C Tablet PO SCH (10:05)
[2018-07-11] MEDS: Meloxicam 15 MG Tablet PO SCH (10:06)
[2018-07-11] MEDS: sulfaSALAzine 500 MG Tablet PO SCH (10:06)
[2018-07-11] MEDS: Calcium/Vitamin D 250/125 MG Tablet PO SCH ×3 (10:06→17:34)
[2018-07-11 10:15] LABS: Albumin 3.1 g/dL (3.4-5.0); Anion Gap 7 meq/L (5-15); Aspartate Aminotransferase 17 U/L (15-37); Blood Urea Nitrogen 20 mg/dL (7-18); Calcium 8.3 mg/dL (8.5-10.1); Carbon Dioxide 27.6 meq/L (21.0-32.0); Chloride 109 meq/L (98-107); Glomerular Filtration Rate 39 mL/min (>89); Glucose,Random 99 mg/dL (74-106); Potassium 3.8 meq/L (3.5-5.1); Sodium 144 meq/L (136-145)
[2018-07-11 10:24] LABS: Alanine Aminotransferase 14 U/L (10-53); Alkaline Phosphatase 77 U/L (45-117); T4 (Thyroxine) 10.1 mcg/dL (4.8-13.9); Total Protein 6.8 g/dL (6.4-8.2); Triiodothyronine (T3) Free 1.79 pg/mL (2.18-3.98)
--- NOTE | 2018-07-11 10:26 | P.PNIM ---
Subjective Interval history: Pt seen and examined for f/u left bimalleolar ankle fracture. S/P ORIF POD1. Pain is controlled. Patient is looking forward to being able to get out of the hospital. She complains of constipation. She is passing gas. Denies chest pain or shortness of breath. Tolerating PO. No nausea or vomiting. BP noted to be significantly elevated today but also noticed that too small of the cuff was being used. The patient reports she is usually the opposite and runs low. Physical Exam Vital signs: Vital Signs 07/10/18 12:00 07/10/18 16:02 07/10/18 20:00 Temperature 99.3 F 99 F Pulse Rate 91 H 88 Respiratory Rate 18 18 Blood Pressure 146/63 H 168/72 H Pulse Oximetry 99 96 94 L 07/11/18 00:00 07/11/18 04:25 07/11/18 08:00 Temperature 99.2 F 99.5 F 98.5 F Pulse Rate 81 82 81 Respiratory Rate 18 20 20 Blood Pressure 135/62 123/66 162/70 H Pulse Oximetry 95 94 L 95 Intake & Output 07/10/18 07/11/18 07/11/18 18:59 06:59 18:59 Intake Total 1300 / 1300 1200 / 1200 Output Total 50 / 50 Balance 1250 / 1250 1200 / 1200 Intake: IV 1000 / 1000 1200 / 1200 NS Inj 1,000 ML @ 100 mls/hr IV 1000 / 1000 1000 / 1000 .CONT .Q10H U[facility]ANO Rx#:[id number] Ancef Inj 2,000 MG In NS Inj 80 200 / 200 ML @ 200 mls/hr IV.SIG Q8H U[facility]O Rx#:[id number] Anesthesia Amount 300 / 300 Output: Estimated Blood Loss 50 / 50 Other: # Voids 3 Date of Last Bowel Movement 07/08/18 07/08/18 Narrative: GENERAL: WN, WD female resting in bed in NAD. SKIN: Warm and dry. HEART: RRR no m/r/g. LUNGS: CTAB without wheezes or crackles. ABDOMEN: +BS, soft, NT, ND. EXTREMITIES: LLE splinted. Neurovascular intact. Wiggles toes. NEURO: Awake and alert. Results - Labs CBC & Chem 7: 07/11/18 08:13 07/11/18 08:18 Laboratory Results - last 24 hr 07/11/18 07/11/18 08:13 08:18 WBC 11.7 H RBC 3.52 L Hgb 10.6 L Hct 31.8 L MCV 90.3 MCH 30.2 MCHC 33.4 RDW 14.1 Plt Count 213 MPV 8.7 Sodium 144 Potassium 3.8 Chloride 109 H Carbon Dioxide 27.6 Anion Gap 7 BUN 20 H Creatinine 1.31 H Estimated GFR 39 L Random Glucose 99 Calcium 8.3 L Total Bilirubin 0.5 AST 17 ALT 14 Alkaline Phosphatase 77 Total Protein 6.8 Albumin 3.1 L Thyroxine (T4) 10.1 Free T3 1.79 L Assessment and Plan - Assessment (1) Closed fracture dislocation of ankle Code(s): S82.899A - Other fracture of unspecified lower leg, initial encounter for closed fracture Status: Acute (2) Osteoarthritis Code(s): M19.90 - Unspecified osteoarthritis, unspecified site Status: Chronic (3) Rheumatoid arthritis Code(s): M06.9 - Rheumatoid arthritis, unspecified Status: Chronic - Plan 78-year-old female with history of rheumatoid arthritis and prior TIA admitted on 07/09 for left bimalleolar ankle fracture after mechanical fall. 1. Bimalleolar ankle fracture Orthopedic surgery consulted S/P ORIF POD1 Nonweightbearing Maintain splits Case management assisting for possible rehab placement 2. Rheumatoid arthritis Resume home sulfasalazine 3. Elevated BPs Patient denies history of hypertension and reports she usually runs on the lower side Vasotec PRN Treat pain Continue to monitor 4. Anemia Mild drop in hemoglobin postop otherwise stable at 10.6 Hemodynamically stable 5. CKD Creatinine stable around 1.3, likely baseline Continue IV fluids Avoid NSAIDs Patient was still getting meloxicam despite it being held in the orders. Will discontinue Renally dose meds and avoid nephrotoxic agent 6. Constipation Encourage PO Cyndy-Colace schedule PRNs available DVT prophylaxis: Heparin Q12 Code Status: Full Discussed Condition With: Patient Discharge Planning: Anticipate D/C to rehab/SNF in next 1-2 days when ortho clears (1) Closed fracture dislocation of ankle Qualifiers: Encounter type: initial encounter Laterality: left Qualified Code(s): S82.892A - Other fracture of left lower leg, initial encounter for closed fracture
--- NOTE | 2018-07-11 10:34 | P.PNOP ---
Subjective Interval history: Resting comfortably with no new complaint Physical Exam Vital signs: Vital Signs 07/10/18 12:00 07/10/18 16:02 07/10/18 20:00 Temperature 99.3 F 99 F Pulse Rate 91 H 88 Respiratory Rate 18 18 Blood Pressure 146/63 H 168/72 H Pulse Oximetry 99 96 94 L 07/11/18 00:00 07/11/18 04:25 07/11/18 08:00 Temperature 99.2 F 99.5 F 98.5 F Pulse Rate 81 82 81 Respiratory Rate 18 20 20 Blood Pressure 135/62 123/66 162/70 H Pulse Oximetry 95 94 L 95 Intake & Output 07/10/18 07/11/18 07/11/18 18:59 06:59 18:59 Intake Total 1300 / 1300 1200 / 1200 Output Total 50 / 50 Balance 1250 / 1250 1200 / 1200 Intake: IV 1000 / 1000 1200 / 1200 NS Inj 1,000 ML @ 100 mls/hr IV 1000 / 1000 1000 / 1000 .CONT .Q10H U[facility]O Rx#:[id number] Ancef Inj 2,000 MG In NS Inj 80 200 / 200 ML @ 200 mls/hr IV.SIG Q8H U[facility]O Rx#:[id number] Anesthesia Amount 300 / 300 Output: Estimated Blood Loss 50 / 50 Other: # Voids 3 Date of Last Bowel Movement 07/08/18 07/08/18 Narrative: Left lower extremity: Clean dry dressings intact. Intact sensation all toes. No pain with hip or knee motion. Good capillary refills Results - Labs CBC & Chem 7: 07/11/18 08:13 07/11/18 08:18 Laboratory Results - last 24 hr 07/11/18 07/11/18 08:13 08:18 WBC 11.7 H RBC 3.52 L Hgb 10.6 L Hct 31.8 L MCV 90.3 MCH 30.2 MCHC 33.4 RDW 14.1 Plt Count 213 MPV 8.7 Sodium 144 Potassium 3.8 Chloride 109 H Carbon Dioxide 27.6 Anion Gap 7 BUN 20 H Creatinine 1.31 H Estimated GFR 39 L Random Glucose 99 Calcium 8.3 L Total Bilirubin 0.5 AST 17 ALT 14 Alkaline Phosphatase 77 Total Protein 6.8 Albumin 3.1 L Thyroxine (T4) 10.1 Free T3 1.79 L Assessment and Plan - Assessment and Plan Left Bimalleolar Ankle Fx ORIF POD 1 -Nonweightbearing -Maintain splint -Elevate as needed Case management for possible rehab placement. Patient lives alone during the daytime. Will be very difficult for her to be nonweightbearing on the left lower extremity by herself at home. Follow-up appointment with Dr. James or [facility] in 2 weeks [facility] Prescription Drug Monitoring Database has been queried and verified prior to prescribing the controlled substance. Acute pain exception. This patient has normal, predicted, physiological, and time limited response to an adverse mechanical stimulus associated with surgery, trauma, or acute illness as described in my notes. There is a lack of alternative treatment options other than to include the prescribed narcotic treatment for this condition.
[2018-07-11] MEDS: Morphine Inj 4 MG/ML Vial IV.PUSH PRN (19:57)
[2018-07-11] MEDS ORDERED: Heparin - SQ 10,000 UNITS/ML Vial SQ SCH (21:00)
[2018-07-12] MEDS: Heparin - SQ 10,000 UNITS/ML Vial SQ SCH ×2 (00:28→09:08)
[2018-07-12] MEDS: Senna/Docusate Sodium 8.6/50 MG Tablet PO SCH ×4 (00:30→09:24)
--- NOTE | 2018-07-12 06:39 | P.PNOP ---
Subjective Interval history: Resting comfortably with no new complaints Physical Exam Vital signs: Vital Signs 07/11/18 08:00 07/11/18 12:00 07/11/18 16:00 Temperature 98.5 F 97.9 F 98.2 F Pulse Rate 81 77 84 Respiratory Rate 20 20 20 Blood Pressure 162/70 H 193/81 H 201/81 H Pulse Oximetry 95 96 98 07/11/18 18:05 07/11/18 20:00 07/12/18 00:00 Temperature 98.5 F 98.7 F Pulse Rate 81 82 Respiratory Rate 18 18 17 Blood Pressure 205/85 H 196/81 H Pulse Oximetry 97 96 07/12/18 04:00 Temperature 98.0 F Pulse Rate 74 Respiratory Rate 17 Blood Pressure 189/78 H Pulse Oximetry 95 Intake & Output 07/11/18 07/11/18 07/12/18 06:59 18:59 06:59 Intake Total 1200 / 1200 1700 / 1700 Balance 1200 / 1200 1700 / 1700 Intake: IV 1200 / 1200 1220 / 1220 NS Inj 1,000 ML @ 100 mls/hr IV 1000 / 1000 1000 / 1000 .CONT .Q10H [facility] Rx#:[id number] Ancef Inj 2,000 MG In NS Inj 80 200 / 200 100 / 100 ML @ 200 mls/hr IV.SIG Q8H [facility] Rx#:[id number] Oral 480 / 480 Other: # Voids 3 Date of Last Bowel Movement 07/08/18 07/11/18 # Bowel Movements 1 Narrative: Left lower extremity: Clean dry dressings intact. Intact sensation in toes. Is able to move all toes appropriate Results - Labs CBC & Chem 7: 07/11/18 08:13 07/11/18 08:18 Laboratory Results - last 24 hr 07/11/18 07/11/18 08:13 08:18 WBC 11.7 H RBC 3.52 L Hgb 10.6 L Hct 31.8 L MCV 90.3 MCH 30.2 MCHC 33.4 RDW 14.1 Plt Count 213 MPV 8.7 Sodium 144 Potassium 3.8 Chloride 109 H Carbon Dioxide 27.6 Anion Gap 7 BUN 20 H Creatinine 1.31 H Estimated GFR 39 L Random Glucose 99 Calcium 8.3 L Total Bilirubin 0.5 AST 17 ALT 14 Alkaline Phosphatase 77 Total Protein 6.8 Albumin 3.1 L Thyroxine (T4) 10.1 Free T3 1.79 L Assessment and Plan - Assessment and Plan Left Bimalleolar Ankle Fx ORIF POD 2 -Nonweightbearing -Maintain splint -Elevate as needed Orthopedically cleared for discharge to rehab when bed available Follow-up appointment with Dr. James or [place] in 2 weeks [facility] Prescription Drug Monitoring Database has been queried and verified prior to prescribing the controlled substance. Acute pain exception. This patient has normal, predicted, physiological, and time limited response to an adverse mechanical stimulus associated with surgery, trauma, or acute illness as described in my notes. There is a lack of alternative treatment options other than to include the prescribed narcotic treatment for this condition.
[2018-07-12 07:02] LABS: Hemoglobin 10.1 gm/dL (11.6-15.3); Mean Corpuscular HGB Conc 33.8 % (32.0-36.0); Mean Corpuscular Hemoglobin 30.6 pg (27.0-34.0); Mean Corpuscular Volume 90.8 fL (80.0-100.0); Mean Platelet Volume 8.1 fL (7.0-11.0); Platelet Count 184 th/mm3 (150-450); Red Blood Count 3.31 mil/mm3 (4.00-5.30); Red Cell Distribution Width 14.3 % (11.6-17.2); White Blood Count 10.7 th/mm3 (4.0-11.0)
[2018-07-12 07:25] LABS: Potassium 4.3 meq/L (3.5-5.1)
[2018-07-12] MEDS: Sod Chloride 0.9% Inj 1,000 ML IV.CONT SCH ×2 (08:35→11:45)
[2018-07-12] MEDS ORDERED: amLODIPine 10 MG Tablet PO SCH (09:01)
--- NOTE | 2018-07-12 09:06 | P.DS ---
Date of admission: 07/09/18 19:49 Primary care physician: Colin Espinoza MD Attending physician on discharge: Liyah Galeas Anticipated date of discharge: 07/12/18 Brief History from admission: Mrs. Quiroz is a 78 yo F with PMH osteoarthritis, rheumatoid arthritis, and distant prior TIA who presented to [place] [facility] PO after fall injury this morning resulting in L ankle/leg injury. Patient states that she was preparing meals for her dogs this morning when she felt that her left leg was "going out." She could not keep her balance so she fell which resulted in her ankle being displaced inward towards her right leg. Patient states that she fell slowly and did not hit her head or have other injury. She denies any loss of consciousness, dizziness, or other symptoms preceding fall. Patient reports prior weakness/ "wobbl'ing of her leg due to history of arthritis and that she has seen a physician previously for this; she did not have acute numbness/tingling/weakness or other changes to cause suspicion for cardiac or vascular accident. After injury, patient could not ambulate so crawled to phone to contact granddaughter. Patient was then given splint by fire department who arrived to house, and was subsequently transported to ED. Patient reports having recent weakness so was planning to have a cardiac work- up per her PCP. She has not had chest pain or palpitations. She takes Tramadol and Sulfasalazine for arthritis; she denies other medical problems. Interval: patient evaluated in ED; ankle imaging demonstrating complicated distal fibula/ tibia fracture. Patient given Morphine for pain. Per discussion between ED and Dr. James's team, it was agreed for patient to be transferred to [facility] with plan for ORIF tomorrow; hospitalist called for admission. Patient update on day of discharge: Pt seen and examined POD2 s/p ORIF left bimalleolar ankle fracture. BPs high, systolic up to 200 overnight and came down with clonidine. Pain controlled. Denies CP, SOB, CHOUDHARY, blurry vision, abdominal pain, N/V. Tolerating PO. + Flatus. No prior history of HTN. Started on Amlodipine. Wants to be discharged to SNF as soon as bed available. Cleared by ortho. DS: Diagnosis - Discharge Diagnosis (1) Closed fracture dislocation of ankle Status: Acute (2) Osteoarthritis Status: Chronic (3) Rheumatoid arthritis Status: Chronic (4) Hypertension Status: Acute DS: Medications - Discharge Medications Prescriptions: amlodipine [Norvasc] 10 mg PO DAILY #30 tab hydrocodone-acetaminophen [[place]] 1 tab PO Q4H #40 tab tramadol 50 mg PO QID PRN #120 tab PRN Reason: Pain DS: Summary Hospital Course: 78-year-old female with history of rheumatoid arthritis and prior TIA admitted on 07/09 for left bimalleolar ankle fracture after mechanical fall. Orthopedic surgery was consulted and patient underwent uncomplicated ORIF on . Following surgery her BP remain elevated despite adequate pain control and proper size blood pressure cuff. She was started on amlodipine for blood pressure control. She was discharged in stable condition on 07/12 to a SNF. - Time Spent with Patient Total time spent providing and/or coordinating discharge services: Greater than 30 minutes - Quality: VTE Deep Vein Thrombosis/Pulmonary Embolism Present on Admission: No Exam Vital signs: Vital Signs 07/11/18 12:00 07/11/18 16:00 07/11/18 18:05 Temperature 97.9 F 98.2 F Pulse Rate 77 84 Respiratory Rate 20 20 18 Blood Pressure 193/81 H 201/81 H Pulse Oximetry 96 98 07/11/18 20:00 07/12/18 00:00 07/12/18 04:00 Temperature 98.5 F 98.7 F 98.0 F Pulse Rate 81 82 74 Respiratory Rate 18 17 17 Blood Pressure 205/85 H 196/81 H 189/78 H Pulse Oximetry 97 96 95 07/12/18 08:00 Temperature 98.4 F Pulse Rate 76 Respiratory Rate 18 Blood Pressure 179/79 H Pulse Oximetry 97 Intake & Output 07/11/18 07/12/18 07/12/18 18:59 06:59 18:59 Intake Total 1700 / 1700 1000 / 1000 Output Total 625 / 625 Balance 1700 / 1700 -625 / -625 1000 / 1000 Weight 82 kg Intake: IV 1220 / 1220 1000 / 1000 NS Inj 1,000 ML @ 100 mls/hr IV 1000 / 1000 1000 / 1000 .CONT .Q10H URBANO Rx#:[id number] Ancef Inj 2,000 MG In NS Inj 80 100 / 100 ML @ 200 mls/hr IV.SIG Q8H URBANO Rx#:[id number] Oral 480 / 480 Output: Urine 625 / 625 Other: # Voids 3 Date of Last Bowel Movement 07/11/18 # Bowel Movements 1 Narrative: GENERAL: WN, WD female resting in bed in NAD. SKIN: Warm and dry. HEART: RRR no m/r/g. LUNGS: CTAB without wheezes or crackles. ABDOMEN: +BS, soft, NT, ND. EXTREMITIES: LLE splinted. Neurovascular intact. Wiggles toes. NEURO: Awake and alert. Results Procedures completed during hospitalization: 07/10/18: ORIF left bimalleolar ankle fracture Labs on day of discharge: Labs from last 24 hours 07/12/18 07/12/18 07/11/18 06:08 06:08 08:18 WBC 10.7 RBC 3.31 L Hgb 10.1 L Hct 30.0 L MCV 90.8 MCH 30.6 MCHC 33.8 RDW 14.3 Plt Count 184 MPV 8.1 Sodium 144 144 Potassium 4.3 3.8 Chloride 109 H 109 H Carbon Dioxide 27.0 27.6 Anion Gap 8 7 BUN 21 H 20 H Creatinine 1.07 H 1.31 H Estimated GFR 49 L 39 L Random Glucose 100 99 Calcium 8.0 L 8.3 L Total Bilirubin 0.5 AST 17 ALT 14 Alkaline Phosphatase 77 Total Protein 6.8 Albumin 3.1 L Thyroxine (T4) 10.1 Free T3 1.79 L 07/11/18 08:13 WBC 11.7 H RBC 3.52 L Hgb 10.6 L Hct 31.8 L MCV 90.3 MCH 30.2 MCHC 33.4 RDW 14.1 Plt Count 213 MPV 8.7 Sodium Potassium Chloride Carbon Dioxide Anion Gap BUN Creatinine Estimated GFR Random Glucose Calcium Total Bilirubin AST ALT Alkaline Phosphatase Total Protein Albumin Thyroxine (T4) Free T3 - Impressions ITS Impressions Chest X-Ray 07/09/18 00:00 CONCLUSION: No acute cardiopulmonary disease identified. Foot X-Ray 07/09/18 14:29 CONCLUSION: See the ankle reported separately. The acute abnormality involving the foot.. Ankle X-Ray 07/10/18 00:00 CONCLUSION: ORIF left ankle. Discharge Plan - Discharge Disposition Patient Disposition: Discharge to SNF - Discharge Condition Condition: Stable - Discharge Order Discharge Orders: Discharge Order (Routine); Ordered 07/12/18 Ordered By: Liyah Fritze Orthopedic Clear for Discharge (Routine); Ordered 07/12/18 Ordered By: Andrade Penn - Discharge Details Anticipated Discharge Date: 07/12/18 Discharge Comment: D/C if repeat BP this afternoon less than 170/90 - Physicians Team Primary Care Provider: Colin Espinoza Attending Provider: Liyah Galeas Other Providers: Mendoza James MD ; Clint Cool [facility] ; [facility],Agency
[2018-07-12] MEDS: Vitamin B Complex/Vitamin C Tablet PO SCH (09:07)
[2018-07-12] MEDS: sulfaSALAzine 500 MG Tablet PO SCH (09:07)
[2018-07-12] MEDS: Calcium/Vitamin D 250/125 MG Tablet PO SCH ×3 (09:07→17:16)
[2018-07-12 16:22] VITALS: BP 173/68; PULSE 83; RESP 18; TEMP 98.7; O2SAT 95
== END 2018-07-12 18:32 ==
LOC: PHEFT 13:24 → PHED 13:24 → PHEDA 16:35 → N06 21:46
PROVIDERS: ADMIT Family Medicine; ATTEND Family Medicine
PROC: ORIFANK (2018-07-10 07:27)